=== PATIENT | female | born 1980 | race Caucasian/White ===

== ENCOUNTER 2022-09-19 15:52 | Observation (INO) ==
[2022-09-19] MEDS ORDERED: 0.9 % SODIUM CHLORIDE 1,000 ML IV ONE ×2 (16:25→17:41)
[2022-09-19] MEDS ORDERED: diphenhydrAMINE 50 MG/ML VIAL IV ONE (16:25)
[2022-09-19] MEDS ORDERED: PROCHLORPERAZINE 10 MG/2 ML VIAL IV ONE (16:25)
[2022-09-19] MEDS ORDERED: KETOROLAC 30 MG/ML VIAL IV ONE (16:25)
--- NOTE | 2022-09-19 16:34 | Emergency Department Note ---
HPI <Gail Alfredo PA-C - Last Filed: 09/19/22 20:11> General Chief complaint: Headache Stated complaint: headache for 4 days Time Seen by Provider: 09/19/22 16:07 Source: patient Mode of arrival: ambulatory Limitations: no limitations History of Present Illness HPI Narrative: Narrative: This is a 42-year-old female who presents to the emergency department complaining of headache. The headache begins at the occiput and spreads over her entire head. She has had similar headaches in the past both in intensity and in character. She states she has never had a headache last this long. Patient was in the emergency room for a fentanyl overdose 5 days ago. The next 2 days she had intermittent headache, nausea, and vomiting. Since yesterday she has had worsening headache. The headache came on gradually. She complains of phonophobia and photophobia. She denies fever, vision changes, diplopia, focal weakness, or rash. She continues to feel nauseated, but has not vomited. She h as had occasional cough, but states that she coughs often. She denies abdominal pain. She has no urinary symptoms. Related Data Previous Rx's Medication Instructions Recorded naloxone 4 mg/actuation nasal 4 mg intranasal Q2M PRN opioid 09/15/22 spray (Narcan) overdose #2 ea Allergies Allergy/AdvReac Type Severity Reaction Status Date / Time No Known Drug Allergies Allergy Verified 08/23/22 21:04 Review of Systems <Gail Alfredo PA-C - Last Filed: 09/19/22 20:11> ROS ROS Narrative: Narrative: All systems ED: reviewed and negative except as stated. PFSH <Gail Alfredo PA-C - Last Filed: 09/19/22 20:11> Narrative Patient History Narrative: Narrative: Medical/Surgical/Family History All Active Problems (Updated 09/20/22 @ 09:11 by Hermann Arellano MD) Strep sore throat (Acute) Drug overdose (Acute) Headache (Acute) Tachycardia (Acute) Sepsis (Acute) Urinary tract infection (Acute) Social History Smoking Status: Current every day smoker Exam <Gail Alfredo PA-C - Last Filed: 09/19/22 20:11> Narrative Narrative: Narrative: General Limitations: no limitations General appearance: Present alert; Absent in no apparent distress Head Head: Present atraumatic and normocephalic Eye Eye: Present normal appearance, PERRL and EOMI ENT ENT: Present normal oropharynx and mucous membranes moist Neck Neck: Present normal inspection and full ROM; Absent tenderness Respiratory Respiratory: Present normal lung sounds bilaterally Cardiovascular Cardiovascular: Present regular rate and normal heart sounds Adbominal Abdominal: Present soft; Absent tenderness Neurological Neurological: Present alert and oriented X3 Expanded Neurological Patient oriented to: Present person, place and time Speech: Present fluid speech CRANIAL NERVES: EOM function (II, III, IV, ): Normal, facial sensation (V): Normal, facial palsy (VII): Normal, spinal accessory function (XI): Normal and tongue deviation (XII): Normal Motor strength - LUE: 5/5 Motor strength - RUE: 5/5 Motor strength - LLE: 5/5 Motor strength - RLE: 5/5 Psychiatric Psychiatric: Present normal affect Skin Skin: Present warm (WNL); Absent rash Course <Gail Alfredo PA-C - Last Filed: 09/19/22 20:11> Course Course Narrative: Patient's headache is similar to previous headaches. There are no red flags in her history or exam. She was treated with IV fluids, IV Toradol, IV Compazine, and IV Benadryl for headache. Her headache did improve with this. She remained tachycardic and another liter of IV normal saline was ordered. Also CBC and CMP were ordered at this time. Sepsis considered when CBC results were reviewed at 6:42 PM. At this time lactic acid, blood cultures, chest x-ray, urinalysis were ordered. Patient also swallowed while I was in the room and stated that it hurt her throat to swallow. Because of this rapid strep was ordered. Rapid COVID and influenza testing was also ordered. Labs have been reviewed. Chest x-ray is negative. Urinalysis is still pending. Patient was discussed with Dr. Arellano who will resume her care. Please refer to his dictation for disposition regarding this patient. Vital Signs Vital signs: Vital Signs Temperature 98.8 F 09/19/22 15:56 Pulse Rate 112 H 09/19/22 15:56 Respiratory Rate 18 09/19/22 15:56 Blood Pressure 133/77 09/19/22 15:56 Pulse Oximetry (%) 99 09/19/22 15:56 Oxygen Delivery Method 09/19/22 15:56 Temperature 99.4 F H 09/20/22 07:33 Pulse Rate 87 09/20/22 08:00 Respiratory Rate 14 09/20/22 08:00 Blood Pressure 112/81 09/20/22 08:00 Pulse Oximetry (%) 100 09/20/22 08:00 Oxygen Delivery Method 09/20/22 08:00 <Hermann Arellano MD - Last Filed: 09/20/22 09:13> Vital Signs Vital signs: Vital Signs Temperature 98.8 F 09/19/22 15:56 Pulse Rate 112 H 09/19/22 15:56 Respiratory Rate 18 09/19/22 15:56 Blood Pressure 133/77 09/19/22 15:56 Pulse Oximetry (%) 99 09/19/22 15:56 Oxygen Delivery Method 09/19/22 15:56 Temperature 99.4 F H 09/20/22 07:33 Pulse Rate 87 09/20/22 08:00 Respiratory Rate 14 09/20/22 08:00 Blood Pressure 112/81 09/20/22 08:00 Pulse Oximetry (%) 100 09/20/22 08:00 Oxygen Delivery Method 09/20/22 08:00 MDM <Gail Alfredo PA-C - Last Filed: 09/19/22 20:11> MDM Narrative Medical decision making narrative: Narrative: Lab Data Result diagrams: 09/20/22 05:26 09/20/22 05:26 Labs: Lab Results 09/19/22 09/19/22 09/19/22 Range/Units 16:40 16:40 19:28 WBC 20.8 H (4.5-11.0) K/mcL RBC 3.69 (3.59-5.38) M/mcL Hgb 11.7 (11.2-15.7) g/dL Hct 34.1 (34.1-44.9) % MCV 92.4 (80.0-100.0) fL MCH 31.7 (26.0-34.0) pg MCHC 34.3 (31.0-36.0) g/dL RDW 11.6 (11.5-14.5) % Plt Count 313 (140-440) K/mcL MPV 10.0 (8.8-12.5) fL Immature Gran % (Auto) 0.5 (0.0-0.5) % Neut % (Auto) 85.0 H (38.0-78.0) % Lymph % (Auto) 5.1 L (15.5-49.0) % Ware % (Auto) 9.1 (1.0-12.0) % Eos % (Auto) 0.1 (0.0-7.0) % Baso % (Auto) 0.2 (0.0-2.0) % Lymph # (Auto) 1.06 L (1.50-4.80) K/mcL Ware # (Auto) 1.90 H (0.10-0.90) K/mcL Eos # (Auto) 0.03 (0.00-0.70) K/mcL Baso # (Auto) 0.04 (0.00-0.30) K/mcL Immature Gran # 0.10 H (0.00-0.05) K/mcl Absolute Neutrophils 17.71 H (1.80-8.00) K/mcL POC VBG pH 7.39 (7.32-7.42) POC VBG pCO2 at Temp 38.2 L (41-51) POC VBG pO2 61 H (25-40) POC VBG HCO3 22.9 L (24-28) POC VBG Total CO2 24.0 L (25-29) POC Venous O2 Sat 91.0 H (40-70) POC VBG Base Excess -2.0 (-2-2) VBG Lactic Acid 0.4 L (0.5-2) Sodium 133 (133-145) mmol/L Potassium 3.6 (3.3-5.1) mmol/L Chloride 97 (96-108) mmol/L Carbon Dioxide 26 (22-30) mmol/L Anion Gap 10.0 (8.0-16.0) BUN 14 (6-20) mg/dL Creatinine 0.8 (0.6-1.1) mg/dL GFR Calculation 92 Glucose 121 H (70-105) mg/dL Calcium 9.4 (8.6-10.4) mg/dL Urine Color Urine Appearance (Clear) Urine pH (5.0-9.0) Ur Specific Collins (1.000-1.035) Urine Protein (Negative) mg/dL Urine Glucose (UA) (Negative) mg/dL Urine Ketones (Negative) mg/dL Urine Occult Blood (Negative) nimo/mcL Urine Nitrate (Negative) Urine Bilirubin (Negative) mg/dL Urine Urobilinogen mg/dL Ur Leukocyte Esterase (Negative) /uL Urine RBC (0-3) /hpf Urine WBC (0-4) /hpf Ur Squamous Epith Cells (0-4) /hpf Urine Bacteria (0) /hpf Urine Mucus (None) /hpf Ur Culture Indicated? CSF Source CSF Appearance CSF Color CSF RBC (0-1) /cumm CSF Total Nucleated Auto (0-5) /cumm CSF Neutrophils CSF Lymphocytes CSF Reactive Lymphs CSF Monocytes CSF Eosinophils % CSF Basophils CSF Plasma Cells CSF Glucose (40-70) mg/dL CSF Total Protein (15.0-45.0) mg/dL Urine Opiates Screen Ur Opiates Confirm Ur Oxycodone Screen U Oxycod/Oxymor Confirm Urine Methadone Screen Ur Methadone Confirm Ur Barbiturates Screen Ur Barbiturate Confirm Ur Phencyclidine Scrn Urine PCP Confirm Ur Amphetamines Screen U Benzodiazepines Scrn Ur Benzodiazepine, Qnt Urine Cocaine Screen Urine Cocaine Confirm U Marijuana (THC) Screen 09/19/22 09/19/22 09/19/22 Range/Units 19:50 19:50 23:25 WBC (4.5-11.0) K/mcL RBC (3.59-5.38) M/mcL Hgb (11.2-15.7) g/dL Hct (34.1-44.9) % MCV (80.0-100.0) fL MCH (26.0-34.0) pg MCHC (31.0-36.0) g/dL RDW (11.5-14.5) % Plt Count (140-440) K/mcL MPV (8.8-12.5) fL Immature Gran % (Auto) (0.0-0.5) % Neut % (Auto) (38.0-78.0) % Lymph % (Auto) (15.5-49.0) % Ware % (Auto) (1.0-12.0) % Eos % (Auto) (0.0-7.0) % Baso % (Auto) (0.0-2.0) % Lymph # (Auto) (1.50-4.80) K/mcL Ware # (Auto) (0.10-0.90) K/mcL Eos # (Auto) (0.00-0.70) K/mcL Baso # (Auto) (0.00-0.30) K/mcL Immature Gran # (0.00-0.05) K/mcl Absolute Neutrophils (1.80-8.00) K/mcL POC VBG pH (7.32-7.42) POC VBG pCO2 at Temp (41-51) POC VBG pO2 (25-40) POC VBG HCO3 (24-28) POC VBG Total CO2 (25-29) POC Venous O2 Sat (40-70) POC VBG Base Excess (-2-2) VBG Lactic Acid (0.5-2) Sodium (133-145) mmol/L Potassium (3.3-5.1) mmol/L Chloride (96-108) mmol/L Carbon Dioxide (22-30) mmol/L Anion Gap (8.0-16.0) BUN (6-20) mg/dL Creatinine (0.6-1.1) mg/dL GFR Calculation Glucose (70-105) mg/dL Calcium (8.6-10.4) mg/dL Urine Color Lt. yellow Urine Appearance Clear (Clear) Urine pH 6.5 (5.0-9.0) Ur Specific Collins 1.010 (1.000-1.035) Urine Protein Negative (Negative) mg/dL Urine Glucose (UA) Negative (Negative) mg/dL Urine Ketones 15 A (Negative) mg/dL Urine Occult Blood Small A (Negative) nimo/mcL Urine Nitrate Positive A (Negative) Urine Bilirubin Negative (Negative) mg/dL Urine Urobilinogen Normal mg/dL Ur Leukocyte Esterase Trace A (Negative) /uL Urine RBC 2 (0-3) /hpf Urine WBC 15 H (0-4) /hpf Ur Squamous Epith Cells < 1 (0-4) /hpf Urine Bacteria Few A (0) /hpf Urine Mucus Few A (None) /hpf Ur Culture Indicated? yes CSF Source Tube 4 CSF Appearance Clear CSF Color Colorless CSF RBC 0 (0-1) /cumm CSF Total Nucleated Auto 0 (0-5) /cumm CSF Neutrophils TNP CSF Lymphocytes TNP CSF Reactive Lymphs TNP CSF Monocytes TNP CSF Eosinophils % TNP CSF Basophils TNP CSF Plasma Cells TNP CSF Glucose 64 (40-70) mg/dL CSF Total Protein 17.0 (15.0-45.0) mg/dL Urine Opiates Screen None detected Ur Opiates Confirm TNP Ur Oxycodone Screen None detected U Oxycod/Oxymor Confirm TNP Urine Methadone Screen None detected Ur Methadone Confirm TNP Ur Barbiturates Screen None detected Ur Barbiturate Confirm TNP Ur Phencyclidine Scrn None detected Urine PCP Confirm TNP Ur Amphetamines Screen Suspect positive A U Benzodiazepines Scrn None detected Ur Benzodiazepine, Qnt TNP Urine Cocaine Screen None detected Urine Cocaine Confirm TNP U Marijuana (THC) Screen Suspect positive A ED POC Tests ED POC Tests: CARLOS - Influenza A Negative CARLOS - Influenza B Negative CARLOS - SARS Antigen Negative CARLOS - Strep A+ Negative <Hermann Arellano MD - Last Filed: 09/20/22 09:13> MDM Narrative Medical decision making narrative: Narrative: I (Chuck Arellano MD) received sign-out from my colleague and took over care of the patient at 1999. Patient had a white count of 20,000 and tachycardia but no fever and no source of infection. Patient had a normal lactic acid level. Bloo d cultures were drawn but no antibiotics started. I suspected that tachycardia could be due to methamphetamine use although the patient denied any use. A urine drug screen was obtained and that did show methamphetamines in her system. Urinalysis came back showing 15 WBCs per high-powered field. That could be a source of infection. I reexamined the patient. While her headache was much better it was not completely gone. She was able to flex and extend her head. Her lungs were clear. I did not hear any cardiac murmur. She remained tachycardic. Her skin felt warm so I repeated the temperature and it was 100.6. At this time (2129), she has 3 SIRS criteria with tachycardia, fever 100.6, white count 20,000. And she has an infection source suspected UTI. Evaluated for severe sepsis she does not have elevated lactate. Her blood pressure is normal. She does not have altered mental status. Her platelet count is normal. Her creatinine is normal. She does not have acute respiratory failure. She does not meet criteria for severe sepsis, only sepsis. I am starting antibiotics with ceftriaxone 1 g IV. This would cover urinary tract sources of infection. I discussed the case with hospitalist Dr. Okeefe. He agreed with the patient being admitted to the hospital. Requested I add vancomycin antibiotic which I did. Requested lumbar puncture. I obtained a CT scan prior to the lumbar puncture which was unremarkable. Lumbar puncture: After prepping the back with Betadine and identifying the L4-L5 interspinous space I injected lidocaine 1% plain followed by insertion of a 22- gauge Ayo needle. I had no fluid back nor blood. I then anesthetized the back at the L3-L4 interspinous space and again inserted the 22-gauge Ayo needle and obtained clear CSF. Opening pressure was 23.5 cm and closing pressure was 18.5 cm. I collected 1-2 milliliters of CSF in tubes 1 2 and 3 and almost 3 mL of CSF in tube #4. Needle was withdrawn and the patient's back was bandaged and cleaned. Patient tolerated procedure well. Fluid was sent off for studies which revealed normal protein, normal glucose. Clear and colorless fluid, no white cells, no red cells. CSF meningitis/encephalitis PCR pending. Culture culture and gram stain were ordered. Patient was admitted to the hospitalist. Sepsis Sepsis Identified: Yes Time Zero: 2137. spiked fever 100.6 & urine came back with suspected infection Lab Data Labs: Lab Results 09/19/22 09/19/22 09/19/22 Range/Units 16:40 16:40 19:28 WBC 20.8 H (4.5-11.0) K/mcL RBC 3.69 (3.59-5.38) M/mcL Hgb 11.7 (11.2-15.7) g/dL Hct 34.1 (34.1-44.9) % MCV 92.4 (80.0-100.0) fL MCH 31.7 (26.0-34.0) pg MCHC 34.3 (31.0-36.0) g/dL RDW 11.6 (11.5-14.5) % Plt Count 313 (140-440) K/mcL MPV 10.0 (8.8-12.5) fL Immature Gran % (Auto) 0.5 (0.0-0.5) % Neut % (Auto) 85.0 H (38.0-78.0) % Lymph % (Auto) 5.1 L (15.5-49.0) % Ware % (Auto) 9.1 (1.0-12.0) % Eos % (Auto) 0.1 (0.0-7.0) % Baso % (Auto) 0.2 (0.0-2.0) % Lymph # (Auto) 1.06 L (1.50-4.80) K/mcL Ware # (Auto) 1.90 H (0.10-0.90) K/mcL Eos # (Auto) 0.03 (0.00-0.70) K/mcL Baso # (Auto) 0.04 (0.00-0.30) K/mcL Immature Gran # 0.10 H (0.00-0.05) K/mcl Absolute Neutrophils 17.71 H (1.80-8.00) K/mcL POC VBG pH 7.39 (7.32-7.42) POC VBG pCO2 at Temp 38.2 L (41-51) POC VBG pO2 61 H (25-40) POC VBG HCO3 22.9 L (24-28) POC VBG Total CO2 24.0 L (25-29) POC Venous O2 Sat 91.0 H (40-70) POC VBG Base Excess -2.0 (-2-2) VBG Lactic Acid 0.4 L (0.5-2) Sodium 133 (133-145) mmol/L Potassium 3.6 (3.3-5.1) mmol/L Chloride 97 (96-108) mmol/L Carbon Dioxide 26 (22-30) mmol/L Anion Gap 10.0 (8.0-16.0) BUN 14 (6-20) mg/dL Creatinine 0.8 (0.6-1.1) mg/dL GFR Calculation 92 Glucose 121 H (70-105) mg/dL Calcium 9.4 (8.6-10.4) mg/dL Urine Color Urine Appearance (Clear) Urine pH (5.0-9.0) Ur Specific Collins (1.000-1.035) Urine Protein (Negative) mg/dL Urine Glucose (UA) (Negative) mg/dL Urine Ketones (Negative) mg/dL Urine Occult Blood (Negative) nimo/mcL Urine Nitrate (Negative) Urine Bilirubin (Negative) mg/dL Urine Urobilinogen mg/dL Ur Leukocyte Esterase (Negative) /uL Urine RBC (0-3) /hpf Urine WBC (0-4) /hpf Ur Squamous Epith Cells (0-4) /hpf Urine Bacteria (0) /hpf Urine Mucus (None) /hpf Ur Culture Indicated? CSF Source CSF Appearance CSF Color CSF RBC (0-1) /cumm CSF Total Nucleated Auto (0-5) /cumm CSF Neutrophils CSF Lymphocytes CSF Reactive Lymphs CSF Monocytes CSF Eosinophils % CSF Basophils CSF Plasma Cells CSF Glucose (40-70) mg/dL CSF Total Protein (15.0-45.0) mg/dL Urine Opiates Screen Ur Opiates Confirm Ur Oxycodone Screen U Oxycod/Oxymor Confirm Urine Methadone Screen Ur Methadone Confirm Ur Barbiturates Screen Ur Barbiturate Confirm Ur Phencyclidine Scrn Urine PCP Confirm Ur Amphetamines Screen U Benzodiazepines Scrn Ur Benzodiazepine, Qnt Urine Cocaine Screen Urine Cocaine Confirm U Marijuana (THC) Screen 09/19/22 09/19/22 09/19/22 Range/Units 19:50 19:50 23:25 WBC (4.5-11.0) K/mcL RBC (3.59-5.38) M/mcL Hgb (11.2-15.7) g/dL Hct (34.1-44.9) % MCV (80.0-100.0) fL MCH (26.0-34.0) pg MCHC (31.0-36.0) g/dL RDW (11.5-14.5) % Plt Count (140-440) K/mcL MPV (8.8-12.5) fL Immature Gran % (Auto) (0.0-0.5) % Neut % (Auto) (38.0-78.0) % Lymph % (Auto) (15.5-49.0) % Ware % (Auto) (1.0-12.0) % Eos % (Auto) (0.0-7.0) % Baso % (Auto) (0.0-2.0) % Lymph # (Auto) (1.50-4.80) K/mcL Ware # (Auto) (0.10-0.90) K/mcL Eos # (Auto) (0.00-0.70) K/mcL Baso # (Auto) (0.00-0.30) K/mcL Immature Gran # (0.00-0.05) K/mcl Absolute Neutrophils (1.80-8.00) K/mcL POC VBG pH (7.32-7.42) POC VBG pCO2 at Temp (41-51) POC VBG pO2 (25-40) POC VBG HCO3 (24-28) POC VBG Total CO2 (25-29) POC Venous O2 Sat (40-70) POC VBG Base Excess (-2-2) VBG Lactic Acid (0.5-2) Sodium (133-145) mmol/L Potassium (3.3-5.1) mmol/L Chloride (96-108) mmol/L Carbon Dioxide (22-30) mmol/L Anion Gap (8.0-16.0) BUN (6-20) mg/dL Creatinine (0.6-1.1) mg/dL GFR Calculation Glucose (70-105) mg/dL Calcium (8.6-10.4) mg/dL Urine Color Lt. yellow Urine Appearance Clear (Clear) Urine pH 6.5 (5.0-9.0) Ur Specific Collins 1.010 (1.000-1.035) Urine Protein Negative (Negative) mg/dL Urine Glucose (UA) Negative (Negative) mg/dL Urine Ketones 15 A (Negative) mg/dL Urine Occult Blood Small A (Negative) nimo/mcL Urine Nitrate Positive A (Negative) Urine Bilirubin Negative (Negative) mg/dL Urine Urobilinogen Normal mg/dL Ur Leukocyte Esterase Trace A (Negative) /uL Urine RBC 2 (0-3) /hpf Urine WBC 15 H (0-4) /hpf Ur Squamous Epith Cells < 1 (0-4) /hpf Urine Bacteria Few A (0) /hpf Urine Mucus Few A (None) /hpf Ur Culture Indicated? yes CSF Source Tube 4 CSF Appearance Clear CSF Color Colorless CSF RBC 0 (0-1) /cumm CSF Total Nucleated Auto 0 (0-5) /cumm CSF Neutrophils TNP CSF Lymphocytes TNP CSF Reactive Lymphs TNP CSF Monocytes TNP CSF Eosinophils % TNP CSF Basophils TNP CSF Plasma Cells TNP CSF Glucose 64 (40-70) mg/dL CSF Total Protein 17.0 (15.0-45.0) mg/dL Urine Opiates Screen None detected Ur Opiates Confirm TNP Ur Oxycodone Screen None detected U Oxycod/Oxymor Confirm TNP Urine Methadone Screen None detected Ur Methadone Confirm TNP Ur Barbiturates Screen None detected Ur Barbiturate Confirm TNP Ur Phencyclidine Scrn None detected Urine PCP Confirm TNP Ur Amphetamines Screen Suspect positive A U Benzodiazepines Scrn None detected Ur Benzodiazepine, Qnt TNP Urine Cocaine Screen None detected Urine Cocaine Confirm TNP U Marijuana (THC) Screen Suspect positive A ED POC Tests ED POC Tests: CARLOS - Influenza A Negative CARLOS - Influenza B Negative CARLOS - SARS Antigen Negative CARLOS - Strep A+ Negative <Hermann Arellano MD - Last Filed: 09/20/22 09:13> Lumbar Puncture Consent Obtained: written consent Time Out Performed: No Patient Position: left lateral decubitus Skin Prep: Povidone-Iodine 1% Local Anesthetic: lidocaine 1% Amount of anesthesia used (mL): 4 Spinal Needle Gauge: 22G (Ayo needle) Interspace Used: L3-L4 Opening Pressure (cmH20): 23.5 Fluid Initially Obtained: clear Additional Comments: Closing pressure 18.5 cm. Initial attempt at the L4-L5 interspinous space was unsuccessful. Second attempt at the L3-L4 interspinous space was successful. Complications: none Discharge Plan Patient/Caregiver Discharge Instructions Pt seen by CHILD DEVELOPMENT SPECIALIST/PA only: No Clinical Impression: Tachycardia Headache Qualifiers: Headache type: unspecified Headache chronicity pattern: acute headache Intractability: not intractable Qualified Code(s): R51.9 - Headache, unspecified Sepsis Qualifiers: Sepsis type: sepsis due to unspecified organism Sepsis acute organ dysfunction status: without acute organ dysfunction Qualified Code(s): A41.9 - Sepsis, unspecified organism Urinary tract infection Qualifiers: Urinary tract infection type: acute cystitis Hematuria presence: without hematuria Qualified Code(s): N30.00 - Acute cystitis without hematuria Patient Disposition: Xfer As Inpt ([facility] Condition: Serious Discharge Date/Time: 09/20/22 00:11
[2022-09-19 18:30] LABS: Basophils # (Auto) 0.04 K/mcL (0.00-0.30); Basophils % (Auto) 0.2 % (0.0-2.0); Eosinophils # (Auto) 0.03 K/mcL (0.00-0.70); Eosinophils % (Auto) 0.1 % (0.0-7.0); Hematocrit 34.1 % (34.1-44.9); Hemoglobin 11.7 g/dL (11.2-15.7); Lymphocytes # (Auto) 1.06 K/mcL (1.50-4.80); Lymphocytes % (Auto) 5.1 % (15.5-49.0); Mean Cell Volume 92.4 fL (80.0-100.0); Mean Corpuscular HGB Conc 34.3 g/dL (31.0-36.0); Monocytes % (Auto) 9.1 % (1.0-12.0); Platelet Count 313 K/mcL (140-440); RBC 3.69 M/mcL (3.59-5.38); Red Cell Distribution Width 11.6 % (11.5-14.5); WBC 20.8 K/mcL (4.5-11.0)
[2022-09-19 18:39] LABS: Blood Urea Nitrogen 14 mg/dL (6-20); Calcium 9.4 mg/dL (8.6-10.4); Carbon Dioxide 26 mmol/L (22-30); Chloride 97 mmol/L (96-108); Glomerular Filtration Rate 92; Glucose 121 mg/dL (70-105)
--- NOTE | 2022-09-19 19:04 | XRay Report ---
HISTORY: Tachycardia and headaches for four days FINDINGS: The lungs are clear. Heart size and pulmonary vasculature are normal. The mediastinum, yusuf and pleura are normal. There has been no significant change since 09/15/22. IMPRESSION: Normal chest. Interpreted and Authenticated by: Shahram Lovell 09/19/22
[2022-09-19 20:29] LABS: Appearance,Urine CLEAR (Clear); Bacteria,Urine FEW /hpf (0); Bilirubin,Urine NEGATIVE (Negative); Color,Urine LT. YELLOW; Culture Indicated,Urine yes; Glucose,Urine (UA) NEGATIVE (Negative); Ketones,Urine 15 mg/dL (Negative); Leukocyte Esterase,Urine TRACE /uL (Negative); Mucus,Urine FEW /hpf; Nitrate,Urine Positive (Negative); PH,Urine 6.5 (5.0-9.0); Protein,Urine NEGATIVE (Negative); Urine Blood SMALL ery/mcL (Negative); Urine RBC 2 /hpf (0-3); Urine Squamous Epithelial Cell < 1 /hpf (0-4); Urine WBC 15 /hpf (0-4); Urobilinogen,Urine Normal
[2022-09-19 20:54] LABS: Amphetamine Screen,Urine Suspect positive; Barbiturate Screen,Urine None detected; Benzodiazepines Screen,Urine None detected; Cannabinoid Screen,Urine Suspect Positive; Cocaine Screen,Urine None detected; Opiate Screen,Urine None detected; Oxycodone, Urine Screen None detected; Phencyclidine Screen,Urine None detected
[2022-09-19] MEDS ORDERED: cefTRIAXone 1 GM VIAL IV ONE (21:37)
[2022-09-19] MEDS ORDERED: VANCOMYCIN 1,000 MG in 0.9 % SODIUM CHLORIDE 250 ML IV ONE (21:52)
--- NOTE | 2022-09-19 22:08 | Internal Med History&Physical ---
HPI History of Present Illness Patient information: Note initiated : 09/19/22 at 10:02 pm Service Date, if different from initiated Date: [] Patient: Robyn Blanco 42 y/o F admitted on for headache for 4 days. Chief Complaint: [] History of present illness: Ms. Blanco is a 42 year old F Female who presented to the emergency department complaining of a headache. She says that she has a history of headaches and this is similar to her prior headaches. In the emergency department, the patient had a leukocytosis and there was concern the patient was septic from an unknown source. Work-up in the ED included urinalysis which was mildly suggestive of UTI. Patient recently had an unintentional fentanyl overdose when she snorted laced cocaine. Patient also has a history of methamphetamine use disorder. In the ED, the patient had a white blood cell count of 19,600. Her prior white blood cell count at [facility] have also been elevated. The patient denies IV substance use, says that she mostly snorts substances. She denies during dysuria or increased frequency Review of systems Constitutional: no fever, fatigue, or weight loss Eyes: no vision changes or pain Cardiovascular: no chest pain, no palpitations Respiratory: no cough or dyspnea Gastrointestinal: no abdominal pain, no nausea, vomiting, or diarrhea Genitourinary: no dysuria or difficulty voiding Musculoskeletal: no arthralgia or myalgia Integumentary: no skin lesion or wound Neurological: Positive for headache, no focal weakness or numbness Psychiatric: no anxiety or depression Physical exam Head: Atraumatic, normal inspection. Eyes: normal appearance, no scleral icterus. Neck: full ROM Respiratory: no respiratory distress. Cardiovascular: normal rate and rhythm, S1, S2. GI/Abdominal: soft, nontender, no guarding. Extremities: full range of motion, nontender. Neurological: CN II-XII intact, intact motor, intact sensation. Psychiatric: normal mood. Skin: warm, normal color PFSH PFSH All Active Problems (Updated 09/20/22 @ 09:11 by Hermann Arellano MD) Strep sore throat (Acute) Drug overdose (Acute) Headache (Acute) Tachycardia (Acute) Sepsis (Acute) Urinary tract infection (Acute) Social History smoking status: Current every day smoker MEDS/ALLERGIES Home Medications and Allergies Home Medications Medication Instructions Recorded Confirmed Type naloxone 4 mg/actuation nasal 4 mg intranasal Q2M PRN opioid 09/15/22 09/19/22 Rx spray (Narcan) overdose #2 ea levofloxacin 750 mg tablet 750 mg PO QDAY 5 days #5 tabs 09/20/22 Rx Allergies Allergy/AdvReac Type Severity Reaction Status Date / Time No Known Drug Allergies Allergy Verified 08/23/22 21:04 EXAM Constitutional Vitals: Temp Pulse Resp BP Pulse Ox O2 Del Method 100.6 F H 103 H 18 121/75 100 09/19/22 21:35 09/19/22 20:55 09/19/22 15:56 09/19/22 21:43 09/19/22 21:43 09/19/22 15:56 DATA Data Completed and Pending Labs: Labs from last 24 hours 09/19/22 09/19/22 09/19/22 19:50 19:50 19:28 WBC RBC Hgb Hct MCV MCH MCHC RDW Plt Count MPV Immature Gran % (Auto) Neut % (Auto) Lymph % (Auto) [place] % (Auto) Eos % (Auto) Baso % (Auto) Lymph # (Auto) [place] # (Auto) Eos # (Auto) Baso # (Auto) Immature Gran # Absolute Neutrophils POC VBG pH 7.39 POC VBG pCO2 at Temp 38.2 L POC VBG pO2 61 H POC VBG HCO3 22.9 L POC VBG Total CO2 24.0 L POC Venous O2 Sat 91.0 H POC VBG Base Excess -2.0 VBG Lactic Acid 0.4 L Sodium Potassium Chloride Carbon Dioxide Anion Gap BUN Creatinine GFR Calculation Glucose Calcium Urine Color Lt. yellow Urine Appearance Clear Urine pH 6.5 Ur Specific [place] 1.010 Urine Protein Negative Urine Glucose (UA) Negative Urine Ketones 15 A Urine Occult Blood Small A Urine Nitrate Positive A Urine Bilirubin Negative Urine Urobilinogen Normal Ur Leukocyte Esterase Trace A Urine RBC 2 Urine WBC 15 H Ur Squamous Epith Cells < 1 Urine Bacteria Few A Urine Mucus Few A Ur Culture Indicated? yes Urine Opiates Screen None detected Ur Opiates Confirm TNP Ur Oxycodone Screen None detected U Oxycod/Oxymor Confirm TNP Urine Methadone Screen None detected Ur Methadone Confirm TNP Ur Barbiturates Screen None detected Ur Barbiturate Confirm TNP Ur Phencyclidine Scrn None detected Urine PCP Confirm TNP Ur Amphetamines Screen Suspect positive A U Amphetamines Confirm Pending U Benzodiazepines Scrn None detected Ur Benzodiazepine, Qnt TNP Urine Cocaine Screen None detected Urine Cocaine Confirm TNP U Cannabinoids Confirm Pending U Marijuana (THC) Screen Suspect positive A 09/19/22 09/19/22 16:40 16:40 WBC 20.8 H RBC 3.69 Hgb 11.7 Hct 34.1 MCV 92.4 MCH 31.7 MCHC 34.3 RDW 11.6 Plt Count 313 MPV 10.0 Immature Gran % (Auto) 0.5 Neut % (Auto) 85.0 H Lymph % (Auto) 5.1 L [place] % (Auto) 9.1 Eos % (Auto) 0.1 Baso % (Auto) 0.2 Lymph # (Auto) 1.06 L [place] # (Auto) 1.90 H Eos # (Auto) 0.03 Baso # (Auto) 0.04 Immature Gran # 0.10 H Absolute Neutrophils 17.71 H POC VBG pH POC VBG pCO2 at Temp POC VBG pO2 POC VBG HCO3 POC VBG Total CO2 POC Venous O2 Sat POC VBG Base Excess VBG Lactic Acid Sodium 133 Potassium 3.6 Chloride 97 Carbon Dioxide 26 Anion Gap 10.0 BUN 14 Creatinine 0.8 GFR Calculation 92 Glucose 121 H Calcium 9.4 Urine Color Urine Appearance Urine pH Ur Specific [place] Urine Protein Urine Glucose (UA) Urine Ketones Urine Occult Blood Urine Nitrate Urine Bilirubin Urine Urobilinogen Ur Leukocyte Esterase Urine RBC Urine WBC Ur Squamous Epith Cells Urine Bacteria Urine Mucus Ur Culture Indicated? Urine Opiates Screen Ur Opiates Confirm Ur Oxycodone Screen U Oxycod/Oxymor Confirm Urine Methadone Screen Ur Methadone Confirm Ur Barbiturates Screen Ur Barbiturate Confirm Ur Phencyclidine Scrn Urine PCP Confirm Ur Amphetamines Screen U Amphetamines Confirm U Benzodiazepines Scrn Ur Benzodiazepine, Qnt Urine Cocaine Screen Urine Cocaine Confirm U Cannabinoids Confirm U Marijuana (THC) Screen A/P Narrative A/P Narrative: Assessment: 42 year old female with a history of headaches, substance use disorder with methamphetamine and opioids, recent fentanyl overdose, admitted for sepsis of unknown source. The patient is hemodynamically stable, lactic acid was normal. UA was mildly positive for UTI. Chest xray was normal. #Sepsis of unknown source #Possible UTI #Headache #Opioid use disorder with recent fentanyl overdose #Methamphetamine use disorder Plan -Vancomycin and Ceftriaxone for now. -IV fluid, monitor hemodynamic status. -CT head followed by lumbar puncture with CSF infectious workup. -Follow blood and urine cultures. -Check LFTs. -Follow WBC. -Nonopioid analgesics. -As needed Suboxone for opioid withdrawal. -Regular diet. -DVT prophylaxis: Lovenox Time Spent With Patient Time: Total time spent is greater than 50% in coordination of care (as documented) at patient's floor/unit and/or counseling patient:
[2022-09-20 00:03] LABS: Glucose,CSF 64 mg/dL (40-70)
[2022-09-20 00:12] LABS: Appearance,CSF Clear; Nucleated Cells,CSF 0 /cumm (0-5); Red Blood Cell,CSF 0 /cumm (0-1)
[2022-09-20] MEDS ORDERED: ACETAMINOPHEN 325 MG TABLET PO PRN (00:23)
[2022-09-20] MEDS ORDERED: KETOROLAC 30 MG/ML VIAL IV PRN (00:23)
[2022-09-20] MEDS ORDERED: LACTULOSE 20 GM/30 ML ORAL.SOL PO PRN (00:23)
[2022-09-20] MEDS ORDERED: ONDANSETRON 4 MG/2 ML VIAL IV PRN (00:23)
[2022-09-20] MEDS ORDERED: VANCOMYCIN PER PHARMACY IV ONE (00:23)
[2022-09-20] MEDS ORDERED: BUPRENORPHINE/NALOXONE 4MG/1MG ORAL FILM SL PRN (00:23)
[2022-09-20] MEDS ORDERED: SENNOSIDES 1 TABLET PO PRN (00:23)
[2022-09-20] MEDS ORDERED: cefTRIAXone 1 GM VIAL IV ONE (00:23)
[2022-09-20] MEDS: 0.9 % SODIUM CHLORIDE 1,000 ML IV SCH ×2 (00:45→08:37)
[2022-09-20] MEDS: 0.9 % SODIUM CHLORIDE 10 ML SYRINGE IV SCH ×3 (01:01→15:14)
[2022-09-20] MEDS ORDERED: cefTRIAXone 1 GM VIAL ONE (01:03)
[2022-09-20] MEDS ORDERED: VANCOMYCIN PER PHARMACY IV SCH (06:00)
[2022-09-20 06:55] LABS: Hematocrit 32.9 % (34.1-44.9); Hemoglobin 11.1 g/dL (11.2-15.7); Mean Cell Volume 92.9 fL (80.0-100.0); Mean Corpuscular HGB Conc 33.7 g/dL (31.0-36.0); Platelet Count 296 K/mcL (140-440); RBC 3.54 M/mcL (3.59-5.38); Red Cell Distribution Width 11.5 % (11.5-14.5); WBC 19.6 K/mcL (4.5-11.0)
[2022-09-20 07:38] LABS: ALT/SGPT 13 U/L (<40); AST/SGOT 17 U/L (<32); Albumin/Globulin Ratio 1.1 (1.0-2.3); Alkaline Phosphatase 105 U/L (39-117); Bilirubin,Direct < 0.2 mg/dL (0-0.3); Bilirubin,Total 0.2 mg/dL (0.1-1.0); Blood Urea Nitrogen 9 mg/dL (6-20); Calcium 8.7 mg/dL (8.6-10.4); Carbon Dioxide 21 mmol/L (22-30); Chloride 105 mmol/L (96-108); Globulin 2.8 gm/dL (2.2-3.7); Glomerular Filtration Rate 92; Glucose 88 mg/dL (70-105); Lactate Dehydrogenase 226 U/L (135-225); Phosphorous 2.7 mg/dL (2.5-4.5); Triglycerides 68 mg/dL (<150); Uric Acid 3.7 mg/dL (2.5-8.0)
--- NOTE | 2022-09-20 08:01 | Cat Scan Report ---
History: Headache and sepsis, recent drug overdose on 09/15/22 TECHNIQUE: The brain was imaged without contrast in axial plane at 2.5 mm intervals. Sagittal and coronal reformats were created. The radiation exposure was limited using dose reduction technology. FINDINGS: The brain is normally developed. There is no hemorrhage, infarct, edema or inflammatory change. The ventricles and cisterns are normal. There is no abnormal extra-axial fluid collection. Bone windows show no skull lesion. Patient has mild bilateral ethmoid sinusitis. IMPRESSION: Normal unenhanced brain Mild ethmoid sinusitis Interpreted and Authenticated by: Shahram Lovell 09/20/22
[2022-09-20 08:56] LABS: Band Neutrophils % 5 % (0-10); Eosinophils % (Manual) 2 % (0-7); Lymphocytes % 18 % (15-49); Monocytes % (Manual) 2 % (1-12); Platelet Estimate NORMAL (Normal); RBC Morphology NORMAL (Normal); Segmented Neutrophils % 73 % (38-78)
[2022-09-20] MEDS ORDERED: VANCOMYCIN 1,000 MG in 0.9 % SODIUM CHLORIDE 250 ML IV SCH (09:00)
[2022-09-20] MEDS ORDERED: DOCUSATE SODIUM 100 MG CAPSULE PO SCH (09:00)
[2022-09-20] MEDS ORDERED: ENOXAPARIN 40 MG/0.4 ML SYRINGE SQ SCH (09:00)
[2022-09-20] MEDS ORDERED: cefTRIAXone 2 GM in DEXTROSE 5% IN WATER 50 ML IV SCH (14:00)
[2022-09-28 04:53] LABS: Cannabinoid Confirmation Positive
== END 2022-09-20 19:07 | disposition left against medical advice (07) ==
LOC: ED 15:52 → ICU 09-20 00:11 → INTOOBSV 09-20 00:11
PROVIDERS: ADMIT Internal Medicine; ATTEND Internal Medicine

== ENCOUNTER 2022-11-28 02:28 | Inpatient (IN) ==
[2022-11-28] MEDS ORDERED: IOPAMIDOL 100 ML BOTTLE IV ONE (02:29)
--- NOTE | 2022-11-28 02:33 | Emergency Department Note ---
Abdominal Pain HPI General Chief Complaint: Abdominal Pain Stated Complaint: left upper abd. pain Time Seen by Provider: 11/28/22 02:33 Source: patient Mode of arrival: ambulatory Limitations: no limitations History of Present Illness HPI Narrative: Narrative: 42-year-old female presents emergency department complaining of stomach pain that began tonight. She locates it to the left upper quadrant. She describes it as a cramping sensation. Rates it as a 9 on a 0-to-10 scale. Says no prior similar episode. States the pain is constant. Denies radiation to the back. Has associated vomiting. Has associated fever. Patient denies any other medical problems other than she is prediabetic. Related Data Previous Rx's Medication Instructions Recorded naloxone 4 mg/actuation nasal 4 mg intranasal Q2M PRN opioid 09/15/22 spray (Narcan) overdose #2 ea Allergies Allergy/AdvReac Type Severity Reaction Status Date / Time No Known Drug Allergies Allergy Verified 11/28/22 02:33 Review of Systems ROS ROS Narrative: Narrative: Constitutional: Reports fever Eyes: Denies eye discharge ENT ED: Denies throat pain or rhinorrhea Cardiovascular: Denies chest pain Respiratory: Denies shortness of breath Gastrointestinal: Reports abdominal pain, nausea and vomiting Genitourinary: Denies dysuria Musculoskeletal: Denies back pain Integumentary: Denies rash Neurological: Denies headache PFSH Narrative Patient History Narrative: Narrative: Medical/Surgical/Family History All Active Problems (Updated 11/28/22 @ 08:40 by Domenic Mesa MD) Drug abuse (Acute) Prediabetes (Acute) Pyelonephritis (Acute) Strep sore throat (Acute) Drug overdose (Acute) Headache (Acute) Tachycardia (Acute) Sepsis (Acute) Urinary tract infection (Acute) Abdominal pain, acute (Acute) Social History Smoking Status: Current every day smoker Exam Narrative Narrative: Narrative: General Limitations: no limitations General appearance: Present alert and in distress Head Head: Present atraumatic and normocephalic Eye Eye: Present normal appearance; Absent scleral icterus Neck Neck: Present normal inspection Respiratory Respiratory: Present normal lung sounds bilaterally; Absent respiratory distress Cardiovascular Cardiovascular: Present regular rate and tachycardia Adbominal Abdominal: Present soft; Absent tenderness (Epigastric area and left upper quadrant), guarding or rebound Extremities Extremities: Present normal inspection Back Back: Absent tenderness Neurological Neurological: Present alert and oriented X3 Psychiatric Psychiatric: Present normal affect and normal mood Skin Skin: Present warm (WNL) and dry Course Vital Signs Vital signs: Vital Signs Temperature 98.5 F 11/28/22 02:29 Pulse Rate 91 H 11/28/22 02:29 Respiratory Rate 18 11/28/22 02:29 Blood Pressure 129/84 11/28/22 02:29 Pulse Oximetry (%) 99 11/28/22 02:29 Oxygen Delivery Method 11/28/22 02:29 Temperature 98.5 F 11/28/22 02:29 Pulse Rate 85 11/28/22 08:30 Respiratory Rate 18 11/28/22 02:29 Blood Pressure 119/78 11/28/22 08:30 Pulse Oximetry (%) 98 11/28/22 08:30 Oxygen Delivery Method 11/28/22 02:29 MDM MDM Narrative Medical decision making narrative: Narrative: Middle-aged female with upper abdominal pain Differential diagnosis includes biliary duct disease or cholecystitis. Tested liver function tests and they were normal. Differential diagnosis includes pyelonephritis or urinary tract infection. Urine dip was positive for nitrites, positive for small leuks and small blood. Presumed infection and sent to the laboratory for further evaluation. Differential diagnosis includes pancreatitis. Lipase is normal at 31. Differential diagnosis includes gastritis, peptic ulcer disease, GERD. Patient was given Protonix 40 mg IV while undergoing work-up. Differential diagnosis includes intestinal obstruction or other intestinal etiology. Clinical exam not consistent with bowel obstruction White count elevated at 17,000 with 76 neutrophils which is normal and 13 lymphocytes which is slightly low. Hemoglobin was normal at 12.4. Electrolytes were normal. Glucose was elevated at 113. BUN and creatinine were normal. Liver function tests were normal. AST of 19 ALT of 11 bilirubin of 0.4 and direct bili of less than 0.02. Lipase was normal at 31. Urinalysis showed 83 white cells per high-powered field and positive nitrates consistent with urinary tract infection. Lactic acid pending. INR and PTT pending. Sepsis identified at 0420 when the urine dip was positive for nitrites. 2 SIRS criteria were heart rate greater than 90 (98) and white count greater than 12,000 (17,000). Blood cultures x2 were then ordered followed by administration of antibiotics (Zosyn and Vanco) normal saline was ordered at 30 mL/kg. Patient had previously received 1000 mL IV. 0510: Patient is resting comfortably after having received Dilaudid 0.5 mg IV and Zofran.Heart rate is remained tachycardic. at this time is 96. 0630: Discussed with Dr. Mesa the hospitalist. He has accepted the pt. for admission. 0645: Reexamination. Patient states her pain is a 2 on a 0-to-10 scale. States its left upper quadrant. States its been left upper quadrant the entire time. She allowed deep palpation in left and right lower quadrant. She had no rebound tenderness. She had no guarding. She had no referred pain. I considered acute appendicitis but I think this is unlikely. The patient does have elevated white count and fever and abdominal pain with sepsis. I will obtain a CT scan of the abdomen pelvis to look for any source for the infection. Sepsis Sepsis Identified: Yes Time Zero: 0420 with Urine dip positive Lab Data Result diagrams: 11/28/22 02:53 Labs: Lab Results 11/28/22 11/28/22 11/28/22 Range/Units 02:53 02:53 03:24 WBC 17.0 H (4.5-11.0) K/mcL RBC 3.97 (3.59-5.38) M/mcL Hgb 12.4 (11.2-15.7) g/dL Hct 35.7 (34.1-44.9) % POC Hct 34.0 L (36-48) MCV 89.9 (80.0-100.0) fL MCH 31.2 (26.0-34.0) pg MCHC 34.7 (31.0-36.0) g/dL RDW 12.0 (11.5-14.5) % Plt Count 328 (140-440) K/mcL MPV 10.4 (8.8-12.5) fL Immature Gran % (Auto) 0.4 (0.0-0.5) % Neut % (Auto) 75.7 (38.0-78.0) % Lymph % (Auto) 13.2 L (15.5-49.0) % [place] % (Auto) 9.7 (1.0-12.0) % Eos % (Auto) 0.6 (0.0-7.0) % Baso % (Auto) 0.4 (0.0-2.0) % Lymph # (Auto) 2.25 (1.50-4.80) K/mcL [place] # (Auto) 1.65 H (0.10-0.90) K/mcL Eos # (Auto) 0.10 (0.00-0.70) K/mcL Baso # (Auto) 0.06 (0.00-0.30) K/mcL Immature Gran # 0.06 H (0.00-0.05) K/mcl Absolute Neutrophils 12.90 H (1.80-8.00) K/mcL PT (11.9-14.5) sec INR (0.9-1.1) APTT (20.0-37.0) sec VBG Lactic Acid (0.5-2.0) mmol/L POC Sodium 136 (133-145) POC Potassium 3.7 (3.3-5.1) POC Chloride 101 (96-108) POC Total CO2 27.0 (22-30) POC BUN 15 (6-20) POC Creatinine 0.8 (0.6-1.2) POC Glucose 113 H (70-105) POC WB Ioniz Calcium 1.15 L (1.16-1.32) Total Bilirubin 0.4 (0.1-1.0) mg/dL Direct Bilirubin < 0.2 (0-0.3) mg/dL AST 19 (<32) U/L ALT 11 (<40) U/L Alkaline Phosphatase 103 (39-117) U/L Total Protein 6.9 (5.9-8.4) gm/dL Albumin 3.8 (3.2-5.2) gm/dL Globulin 3.1 (2.2-3.7) gm/dL Lipase (7-60) U/L Urine Color Urine Appearance (Clear) Urine pH (5.0-9.0) Ur Specific [place] (1.000-1.035) Urine Protein (Negative) mg/dL Urine Glucose (UA) (Negative) mg/dL Urine Ketones (Negative) mg/dL Urine Occult Blood (Negative) nimo/mcL Urine Nitrate (Negative) Urine Bilirubin (Negative) mg/dL Urine Urobilinogen mg/dL Ur Leukocyte Esterase (Negative) /uL Urine RBC (0-3) /hpf Urine WBC (0-4) /hpf Ur Squamous Epith Cells (0-4) /hpf Urine Bacteria (0) /hpf Urine Mucus (None) /hpf Ur Culture Indicated? 11/28/22 11/28/22 11/28/22 Range/Units 04:19 04:40 04:40 WBC (4.5-11.0) K/mcL RBC (3.59-5.38) M/mcL Hgb (11.2-15.7) g/dL Hct (34.1-44.9) % POC Hct (36-48) MCV (80.0-100.0) fL MCH (26.0-34.0) pg MCHC (31.0-36.0) g/dL RDW (11.5-14.5) % Plt Count (140-440) K/mcL MPV (8.8-12.5) fL Immature Gran % (Auto) (0.0-0.5) % Neut % (Auto) (38.0-78.0) % Lymph % (Auto) (15.5-49.0) % [place] % (Auto) (1.0-12.0) % Eos % (Auto) (0.0-7.0) % Baso % (Auto) (0.0-2.0) % Lymph # (Auto) (1.50-4.80) K/mcL [place] # (Auto) (0.10-0.90) K/mcL Eos # (Auto) (0.00-0.70) K/mcL Baso # (Auto) (0.00-0.30) K/mcL Immature Gran # (0.00-0.05) K/mcl Absolute Neutrophils (1.80-8.00) K/mcL PT 13.6 (11.9-14.5) sec INR 1.0 (0.9-1.1) APTT 35.1 (20.0-37.0) sec VBG Lactic Acid 0.4 L (0.5-2.0) mmol/L POC Sodium (133-145) POC Potassium (3.3-5.1) POC Chloride (96-108) POC Total CO2 (22-30) POC BUN (6-20) POC Creatinine (0.6-1.2) POC Glucose (70-105) POC WB Ioniz Calcium (1.16-1.32) Total Bilirubin (0.1-1.0) mg/dL Direct Bilirubin (0-0.3) mg/dL AST (<32) U/L ALT (<40) U/L Alkaline Phosphatase (39-117) U/L Total Protein (5.9-8.4) gm/dL Albumin (3.2-5.2) gm/dL Globulin (2.2-3.7) gm/dL Lipase 31 (7-60) U/L Urine Color Lt. yellow Urine Appearance Cloudy A (Clear) Urine pH 7.0 (5.0-9.0) Ur Specific [place] 1.015 (1.000-1.035) Urine Protein Negative (Negative) mg/dL Urine Glucose (UA) Negative (Negative) mg/dL Urine Ketones Negative (Negative) mg/dL Urine Occult Blood Small A (Negative) nimo/mcL Urine Nitrate Positive A (Negative) Urine Bilirubin Negative (Negative) mg/dL Urine Urobilinogen Normal mg/dL Ur Leukocyte Esterase Small A (Negative) /uL Urine RBC 9 H (0-3) /hpf Urine WBC 83 H (0-4) /hpf Ur Squamous Epith Cells < 1 (0-4) /hpf Urine Bacteria Few A (0) /hpf Urine Mucus Few A (None) /hpf Ur Culture Indicated? yes ED POC Tests ED POC Tests: HCG POC Results Negative Discharge Plan Patient/Caregiver Discharge Instructions Pt seen by [employer]/PA only: No Clinical Impression: Abdominal pain, acute Sepsis Qualifiers: Sepsis type: sepsis due to unspecified organism Sepsis acute organ dysfunction status: without acute organ dysfunction Qualified Code(s): A41.9 - Sepsis, unspecified organism Patient Disposition: Xfer As Inpt ([facility]) Condition: Fair Discharge Date/Time: 11/28/22 08:37
[2022-11-28] MEDS ORDERED: HYDROmorphone 0.5 MG/0.5 ML SYRINGE IV ONE (02:53)
[2022-11-28] MEDS ORDERED: 0.9 % SODIUM CHLORIDE 1,000 ML IV ONE (02:53)
[2022-11-28] MEDS ORDERED: ONDANSETRON 4 MG/2 ML VIAL IV ONE (02:53)
[2022-11-28] MEDS ORDERED: PANTOPRAZOLE 40 MG VIAL IV ONE (02:55)
[2022-11-28 03:27] LABS: POC Calcium, Ionized 1.15 (1.16-1.32); POC Creatinine 0.8 (0.6-1.2); POC Potassium 3.7 (3.3-5.1)
[2022-11-28 04:00] LABS: Basophils # (Auto) 0.06 K/mcL (0.00-0.30); Basophils % (Auto) 0.4 % (0.0-2.0); Eosinophils % (Auto) 0.6 % (0.0-7.0); Hematocrit 35.7 % (34.1-44.9); Hemoglobin 12.4 g/dL (11.2-15.7); Lymphocytes # (Auto) 2.25 K/mcL (1.50-4.80); Lymphocytes % (Auto) 13.2 % (15.5-49.0); Mean Cell Volume 89.9 fL (80.0-100.0); Mean Corpuscular HGB Conc 34.7 g/dL (31.0-36.0); Mean Platelet Volume 10.4 fL (8.8-12.5); Monocytes # (Auto) 1.65 K/mcL (0.10-0.90); Monocytes % (Auto) 9.7 % (1.0-12.0); Neutrophils % (Auto) 75.7 % (38.0-78.0); Platelet Count 328 K/mcL (140-440); RBC 3.97 M/mcL (3.59-5.38)
[2022-11-28 04:12] LABS: ALT/SGPT 11 U/L (<40); AST/SGOT 19 U/L (<32); Albumin 3.8 gm/dL (3.2-5.2); Alkaline Phosphatase 103 U/L (39-117); Bilirubin,Direct < 0.2 mg/dL (0-0.3); Bilirubin,Total 0.4 mg/dL (0.1-1.0); Globulin 3.1 gm/dL (2.2-3.7)
[2022-11-28] MEDS ORDERED: VANCOMYCIN 1,500 MG in 0.9 % SODIUM CHLORIDE 500 ML IV ONE (04:30)
[2022-11-28] MEDS ORDERED: PIPERACILLIN SODIUM/TAZOBACTAM 3.375 GM in DEXTROSE 5% IN WATER 50 ML IV ONE (04:30)
[2022-11-28] MEDS ORDERED: 0.9 % SODIUM CHLORIDE 1,710 ML IV ONE (04:48)
[2022-11-28 05:14] LABS: Appearance,Urine CLOUDY (Clear); Bacteria,Urine FEW /hpf (0); Bilirubin,Urine NEGATIVE (Negative); Color,Urine LT. YELLOW; Culture Indicated,Urine yes; Glucose,Urine (UA) NEGATIVE (Negative); Ketones,Urine NEGATIVE (Negative); Leukocyte Esterase,Urine SMALL /uL (Negative); Mucus,Urine FEW /hpf; Nitrate,Urine Positive (Negative); Protein,Urine NEGATIVE (Negative); Specific Gravity,Urine 1.015 (1.000-1.035); Urine Blood SMALL ery/mcL (Negative); Urine RBC 9 /hpf (0-3); Urine Squamous Epithelial Cell < 1 /hpf (0-4); Urine WBC 83 /hpf (0-4); Urobilinogen,Urine Normal
[2022-11-28 06:19] LABS: Partial Thromboplastin Time 35.1 sec (20.0-37.0); Prothrombin Time 13.6 sec (11.9-14.5)
[2022-11-28] MEDS ORDERED: 0.9 % SODIUM CHLORIDE 1,000 ML IV SCH (07:00)
--- NOTE | 2022-11-28 08:16 | Cat Scan Report ---
CLINICAL INFORMATION: Left upper quadrant pain COMPARISON: None. TECHNIQUE: Following enteric contrast, 80 cc of Isovue-[id number] were injected intravenously, and 60 seconds later, 0.625 mm helical slices were obtained from the mid heart through the subtrochanteric regions. Following reconstruction, 2.5 mm sagittal, coronal and axial reformatted images were processed and reviewed at bone, lung and soft tissue windows. Five minutes later, 0.625 mm helical slices were obtained from the mid heart through the kidneys and viewed at soft tissue windows.The exam was performed using radiation dose optimization techniques including, but not limited to, automated exposure control, adjustment of the mA and/or kV according to patient size and use of iterative reconstruction technique. FINDINGS: The lung bases are clear. No effusions. The visualized heart is grossly normal. Abdominal images show the gallbladder and bile ducts, liver, adrenal glands, spleen, pancreas and aorta, including aortic branches, are normal in size, configuration and attenuation without focal lesion. There is no free air, free fluid or adenopathy. The right kidney is normal in size, configuration and attenuation spanning 10 cm. The left kidney is mildly enlarged-11.2 cm. In addition, there is inhomogeneous attenuation throughout the renal parenchyma with scattered low-attenuation foci compatible with pyelonephritis (lobar nephronia). Specific regions include 18 minimally low-attenuation focus superior pole, AP millimeter low-attenuation focus in the mid region a 10 mm low-attenuation focus in the inferior pole. There is also mild left perinephric inflammation. The upper collecting systems and ureters are normal. Pelvic images show normal urinary bladder. Uterus is anteflexed and normal in size: 7.7 x 3.7 cm. There is a vague 3 cm inhomogeneous soft tissue mass projecting from the left cervical region which is not well characterized on CT. It will require pelvic ultrasound. Moderate congestion of the bilateral periuterine and paraovarian venous plexus appreciated. Both ovaries are normal colon the right is 2.5 cm and the left is 2.8 cm. The stomach, small bowel, medial pericecal appendix and large bowel are all grossly normal. Bone windows show no osseous abnormality. IMPRESSION: 1. Left pyelonephritis with scattered regions of lobar nephronia. 2. Vague 3 cm mass in the left cervical region. Suggest pelvic ultrasound for more specific evaluation 3. Moderate congestion of the periuterine and paraovarian venous plexus. Patient may be at risk for pelvic congestion syndrome if she has chronic or intermittent pelvic pain. Interpreted and Authenticated by: Jeff Warren 11/28/22
--- NOTE | 2022-11-28 08:35 | Internal Med History&Physical ---
HPI History of Present Illness Patient information: Note initiated : 11/28/22 at 8:33 am Service Date, if different from initiated Date: [] Patient: Robyn Blanco a 42 y/o F admitted on for left upper abd. pain. Chief Complaint: [abdominal pain] Chief complaint: abdominal pain History of present illness: Ms. Blanco is a 42 year old F history of prediabetes, cigarette smoker, alcohol use, marijuana/cocaine use, presenting with 1 day history acute onset abdominal pain. No prior similar episode. No associated trauma or injury. Last night she had acute onset left lower quadrant abdominal pain. Pain is being described as sharp, constant, nonradiating, 10 out of 10 in intensity. No alleviating or exacerbating factors. It is associated with nausea as well as subjective fever. She denies dysuria, or change in urinary frequency or urgency. Labs significant for leukocytosis WBC 17.0. Lactic acid 0.4. UA suggesting the presence of urinary tract infections. CT of the abdomen pelvis showing left pyelonephritis. It also shows a vague 3 cm mass in the left cervical region. Admission request is called for pyelonephritis. Constitutional Constitutional: Present fever(s) and weakness; Absent chills, excessive sweating or fatigue EENT Eyes: Absent blurry vision, change in vision, loss of vision or other visual disturbances Ears: Absent decreased hearing or tinnitus Nose, mouth and throat: Absent abnormal hearing, dry mouth, headache(s), nasal congestion or sore throat Cardiovascular Cardiovascular: Absent chest pain, chest pain at rest, edema, irregular heart rhythm or palpatations Respiratory Respiratory: Absent cough, dyspnea or wheezing Gastrointestinal Gastrointestinal: Present abdominal pain and nausea; Absent constipation, diarrhea or vomiting Musculoskeletal Musculoskeletal: Absent back pain, deformity, limited range of motion, muscle cramps, muscle weakness or numbness Integumentary Integumentary: Absent lesions, rash or wounds Neurological Neurological: Absent focal weakness, headache(s) or numbness Psychiatric Psychiatric: Absent anxiety, depression or hallucinations PFSH PFSH All Active Problems (Updated 11/28/22 @ 08:40 by Domenic Mesa MD) Drug abuse (Acute) Prediabetes (Acute) Pyelonephritis (Acute) Strep sore throat (Acute) Drug overdose (Acute) Headache (Acute) Tachycardia (Acute) Sepsis (Acute) Urinary tract infection (Acute) Abdominal pain, acute (Acute) Social History smoking status: Current every day smoker MEDS/ALLERGIES Home Medications and Allergies Home Medications Medication Instructions Recorded Confirmed Type naloxone 4 mg/actuation nasal 4 mg intranasal Q2M PRN opioid 09/15/22 09/19/22 Rx spray (Narcan) overdose #2 ea Allergies Allergy/AdvReac Type Severity Reaction Status Date / Time No Known Drug Allergies Allergy Verified 11/28/22 02:33 EXAM Constitutional Vitals: Temp Pulse Resp BP Pulse Ox O2 Del Method 36.9 C 85 18 119/78 98 11/28/22 02:29 11/28/22 08:30 11/28/22 02:29 11/28/22 08:30 11/28/22 08:30 11/28/22 02:29 General appearance: cooperative and mild distress Head Head exam: Present atraumatic and normocephalic Eye Eye exam: Present EOMI and PERRL ENT ENT exam: Present mucous membranes moist, normal exam and normal external ear exam Neck Neck exam: Present normal inspection; Absent lymphadenopathy, tenderness or thyromegaly Respiratory Respiratory exam: Absent accessory muscle use, respiratory distress or wheezes Cardiovascular Cardiovascular exam: Present normal rate and rhythm; Absent JVD GI/Abdominal GI/Abdominal exam: Present normal bowel sounds, soft and tenderness; Absent organomegaly Extremities Exam Extremities exam: Present full ROM, normal capillary refill and normal i nspection; Absent tenderness Back Exam Back exam: Present CVA tenderness (L) Neurological Exam Neurological exam: Present alert, CN II-XII intact and oriented X3; Absent motor sensory deficit Psychiatric Psychiatric exam: Present normal affect and normal mood; Absent anxious or depressed Skin Skin exam: Present dry and intact DATA Data Completed and Pending Labs: Labs from last 24 hours 11/28/22 11/28/22 11/28/22 04:40 04:40 04:19 WBC RBC Hgb Hct POC Hct MCV MCH MCHC RDW Plt Count MPV Immature Gran % (Auto) Neut % (Auto) Lymph % (Auto) [place] % (Auto) Eos % (Auto) Baso % (Auto) Lymph # (Auto) [place] # (Auto) Eos # (Auto) Baso # (Auto) Immature Gran # Absolute Neutrophils PT 13.6 INR 1.0 APTT 35.1 VBG Lactic Acid 0.4 L POC Sodium POC Potassium POC Chloride POC Total CO2 POC BUN POC Creatinine POC Glucose POC WB Ioniz Calcium Total Bilirubin Direct Bilirubin AST ALT Alkaline Phosphatase Total Protein Albumin Globulin Lipase 31 Urine Color Lt. yellow Urine Appearance Cloudy A Urine pH 7.0 Ur Specific [place] 1.015 Urine Protein Negative Urine Glucose (UA) Negative Urine Ketones Negative Urine Occult Blood Small A Urine Nitrate Positive A Urine Bilirubin Negative Urine Urobilinogen Normal Ur Leukocyte Esterase Small A Urine RBC 9 H Urine WBC 83 H Ur Squamous Epith Cells < 1 Urine Bacteria Few A Urine Mucus Few A Ur Culture Indicated? yes 11/28/22 11/28/22 11/28/22 03:24 02:53 02:53 WBC 17.0 H RBC 3.97 Hgb 12.4 Hct 35.7 POC Hct 34.0 L MCV 89.9 MCH 31.2 MCHC 34.7 RDW 12.0 Plt Count 328 MPV 10.4 Immature Gran % (Auto) 0.4 Neut % (Auto) 75.7 Lymph % (Auto) 13.2 L [place] % (Auto) 9.7 Eos % (Auto) 0.6 Baso % (Auto) 0.4 Lymph # (Auto) 2.25 [place] # (Auto) 1.65 H Eos # (Auto) 0.10 Baso # (Auto) 0.06 Immature Gran # 0.06 H Absolute Neutrophils 12.90 H PT INR APTT VBG Lactic Acid POC Sodium 136 POC Potassium 3.7 POC Chloride 101 POC Total CO2 27.0 POC BUN 15 POC Creatinine 0.8 POC Glucose 113 H POC WB Ioniz Calcium 1.15 L Total Bilirubin 0.4 Direct Bilirubin < 0.2 AST 19 ALT 11 Alkaline Phosphatase 103 Total Protein 6.9 Albumin 3.8 Globulin 3.1 Lipase Urine Color Urine Appearance Urine pH Ur Specific [place] Urine Protein Urine Glucose (UA) Urine Ketones Urine Occult Blood Urine Nitrate Urine Bilirubin Urine Urobilinogen Ur Leukocyte Esterase Urine RBC Urine WBC Ur Squamous Epith Cells Urine Bacteria Urine Mucus Ur Culture Indicated? A/P Assessment and plan (1) Pyelonephritis: Status: Acute (2) Prediabetes: Status: Acute (3) Drug abuse: Status: Acute Narrative A/P Narrative: Assessment and Plans: 1. Left pyelonephritis: Inpatient med surg s/p IV fluid bolus in the ED, followed by NS@125cc/hr Rocephin Serial lactic acid Procalcitonin Blood culture Urine culture cbc w/ auto diff in the morning to trend WBC 2. Pre-diabetes: HgA1c POC glucose 113 Regular diet 3. Cigarette/alcohol/marijuana/cocaine use: Urine drug screening GI ppx: not currently indicated DVT ppx: Lovenox Code status: Full Prognosis: guarded Disposition: inpatient med surg Time Spent With Patient Time: Total time spent is greater than 50% in coordination of care (as documented) at patient's floor/unit and/or counseling patient: Initial: Total time with patient: 55 - 74 minutes
[2022-11-28] MEDS ORDERED: ONDANSETRON 4 MG/2 ML VIAL IV PRN (08:44)
[2022-11-28] MEDS ORDERED: oxyCODONE HCL 5 MG TABLET PO PRN (08:44)
[2022-11-28] MEDS ORDERED: IPRATROPIUM/ALBUTEROL 3 ML AMPUL.NEB NEB PRN (08:44)
[2022-11-28] MEDS: ENOXAPARIN 40 MG/0.4 ML SYRINGE SQ SCH ×2 (09:37→09:38)
[2022-11-28] MEDS: cefTRIAXone 2 GM in DEXTROSE 5% IN WATER 50 ML IV SCH (09:37)
[2022-11-28] MEDS: DOCUSATE SODIUM 100 MG CAPSULE PO SCH ×2 (09:37→21:36)
[2022-11-28] MEDS: ACETAMINOPHEN 325 MG TABLET PO PRN ×2 (10:12→18:02)
[2022-11-28 10:53] LABS: Amphetamine Screen,Urine Suspect positive; Barbiturate Screen,Urine None detected; Benzodiazepines Screen,Urine None detected; Cannabinoid Screen,Urine Suspect Positive; Cocaine Screen,Urine None detected; Opiate Screen,Urine None detected; Oxycodone, Urine Screen None detected; Phencyclidine Screen,Urine None detected
[2022-11-28] MEDS ORDERED: chlordiazePOXIDE 25 MG CAPSULE PO PRN (14:09)
--- NOTE | 2022-11-28 14:10 | Internal Med Progress Note ---
SUBJECTIVE Subjective Patient information: Note initiated : 11/28/22 at 2:03 pm Service Date, if different from initiated Date: [] Patient: Robyn Blanco a 42 y/o F admitted on 11/28/22 for left upper abd. pain. Chief Complaint: [] Interval history: History of present illness: Ms. Blanco is a 42 year old F history of prediabetes, cigarette smoker, alcohol use, marijuana/cocaine use, presenting with 1 day history acute onset abdominal pain. No prior similar episode. No associated trauma or injury. Last night she had acute onset left lower quadrant abdominal pain. Pain is being described as sharp, constant, nonradiating, 10 out of 10 in intensity. No alleviating or exacerbating factors. It is associated with nausea as well as subjective fever. She denies dysuria, or change in urinary frequency or urgency. Labs significant for leukocytosis WBC 17.0. Lactic acid 0.4. UA suggesting the presence of urinary tract infections. CT of the abdomen pelvis showing left pyelonephritis. It also shows a vague 3 cm mass in the left cervical region. Admission request is called for pyelonephritis. 11/29 Constitutional Vitals: Vital Signs Temp Pulse Resp BP Pulse Ox O2 Del Method 100.4 F H 98 H 16 120/72 98 11/28/22 11:14 11/28/22 11:14 11/28/22 11:14 11/28/22 11:14 11/28/22 11:14 11/28/22 11:14 Period Temp Pulse Resp BP Sys/Triana Pulse Ox O2 Del Method O2 Flow Rate Last 24 Hr 98.5 F-100.4 F 81-106 16-18 107-145/65-101 95-100 Room Air- Room Air Intake and Output 11/28/22 11/28/22 11/28/22 03:59 11:59 19:59 Intake Total 4030 Output Total 700 Balance 3330 Weight 63.503 kg 63.503 kg Patient Weight 11/29/22 03:59 Weight 63.503 kg Intake & Output: Intake & Output 11/28/22 11/28/22 11/28/22 03:59 11:59 19:59 Intake Total 4030 Output Total 700 Balance 3330 Weight 63.503 kg 63.503 kg Intake: IV 3310 Sodium Chloride 0.9% 1,710 ml @ 2710 3420 mls/hr IV .Q30M [facility] Rx#: [id number] Zosyn 3.375 gm In Dextrose 5% 50 in Water 50 ml @ 100 mls/hr IV ONCE ONE Rx#:[id number] Vancomycin 1,500 mg In Sodium 500 Chloride 0.9% 500 ml @ 333.3 mls/hr IV ONCE ONE Rx#: [id number] Rocephin 2 gm In Dextrose 5% in 50 Water 50 ml @ 100 mls/hr IV Q24H [facility] Rx#:[id number] Oral 720 Output: Void Amount 700 Other: Meal Breakfast Percent of Meal Consumed 100% Feeding Ability Independent Urine Appearance Cloudy Urine Color Yellow Urine Odor Normal Exam: General: Alert, Awake, No acute Distress Eyes/N/T: EOMI, Head/Neck: neck supple, CV: RRR, No murmurs, Pulm: Clear b/l, no wheezing/rhonchi/rales Abd: soft, nontender, +BS x4 Ext: no clubbing/cyanosis/edema Neuro: Alert, no focal deficits, moves all extremities, Skin: warm/dry OBJ DATA Labs CBC & Chem 7: 11/28/22 02:53 Labs: Abnormal Lab Results 11/28/22 11/28/22 11/28/22 04:40 04:30 04:30 WBC POC Hct Lymph % (Auto) Early # (Auto) Immature Gran # Absolute Neutrophils VBG Lactic Acid 0.4 L POC Glucose POC WB Ioniz Calcium Procalcitonin 0.41 H Urine Appearance Urine Occult Blood Urine Nitrate Ur Leukocyte Esterase Urine RBC Urine WBC Urine Bacteria Urine Mucus Ur Amphetamines Screen Suspect positive A U Marijuana (THC) Screen Suspect positive A 11/28/22 11/28/22 11/28/22 04:19 03:24 02:53 WBC 17.0 H POC Hct 34.0 L Lymph % (Auto) 13.2 L Early # (Auto) 1.65 H Immature Gran # 0.06 H Absolute Neutrophils 12.90 H VBG Lactic Acid POC Glucose 113 H POC WB Ioniz Calcium 1.15 L Procalcitonin Urine Appearance Cloudy A Urine Occult Blood Small A Urine Nitrate Positive A Ur Leukocyte Esterase Small A Urine RBC 9 H Urine WBC 83 H Urine Bacteria Few A Urine Mucus Few A Ur Amphetamines Screen U Marijuana (THC) Screen Meds: Medications Acetaminophen (Acetaminophen 325 Mg Tablet) 650 mg PO Q6HP PRN; Protocol PRN Reason: Per Pain Protocol/Fever > 101 Last Admin: 11/28/22 10:12 Dose: 650 mg Albuterol/Ipratropium (Ipratropium/Albuterol 3 Ml Ampul.Neb) 3 ml NEB Q4HRT PRN PRN Reason: Wheezing Docusate Sodium (Docusate Sodium 100 Mg Capsule) 100 mg PO BID [facility] Last Admin: 11/28/22 09:37 Dose: 100 mg Enoxaparin Sodium (Enoxaparin 40 Mg/0.4 Ml Syringe) 40 mg SQ DAILY [facility] Last Admin: 11/28/22 09:38 Dose: Not Given Sodium Chloride (Sodium Chloride 0.9%) 1,000 mls @ 125 mls/hr IV .Q8H [facility] Last Admin: 11/28/22 09:12 Dose: 125 mls/hr Ceftriaxone Sodium 2 gm/ (Dextrose) 50 mls @ 100 mls/hr IV Q24H [facility]; Protocol Last Infusion: 11/28/22 10:09 Dose: Infused Morphine Sulfate (Morphine 4 Mg/Ml Vial) 4 mg IV Q4HP PRN; Protocol PRN Reason: Per Pain Protocol Ondansetron HCl (Ondansetron 4 Mg/2 Ml Vial) 4 mg IV Q6HP PRN PRN Reason: Nausea And Vomiting Oxycodone HCl (Oxycodone Hcl 5 Mg Tablet) 5 mg PO Q4HP PRN; Protocol PRN Reason: Per Pain Protocol Senna (Sennosides 1 Tablet) 2 tab PO HS [facility] Sodium Chloride (0.9 % Sodium Chloride 10 Ml Syringe) 10 ml IV Q8 [facility] A/P Narrative A/P Narrative: A: *Pyelonephritis, left: *Sepsis (leukocytosis/fever/tachycardia): *Prediabetes: *Tobacco abuse *Alcohol abuse: *Cocaine abuse and marijuana use: -UDS (+) for Amphetamine P: -IV rocephin, pending BC/UC -f/u lactate/pct -IVF's -f/u and trend cbc/cmp -a1c -ssi -ciwa, vitamins/minerals -Smoking cessation counseling > 3 minutes -Substance abuse cessation counseling -ppx: lovenox Time Spent With Patient Time: Total time spent is greater than 50% in coordination of care (as documented) at patient's floor/unit and/or counseling patient: QUALITY VTE Deep Vein Thrombosis/Pulmonary Embolism Present on Admission: No
[2022-11-28] MEDS: 0.9 % SODIUM CHLORIDE 10 ML SYRINGE IV SCH ×2 (14:36→21:37)
[2022-11-28] MEDS: morphine 4 MG/ML VIAL IV PRN ×2 (15:33→15:34)
[2022-11-28 16:38] LABS: Hemoglobin A1C 5.2 % Hgb (4.0-6.0)
[2022-11-28] MEDS ORDERED: SENNOSIDES 1 TABLET PO SCH (21:00)
[2022-11-29] MEDS: ACETAMINOPHEN 325 MG TABLET PO PRN (04:02)
[2022-11-29] MEDS: 0.9 % SODIUM CHLORIDE 10 ML SYRINGE IV SCH (05:53)
[2022-11-29 06:34] LABS: Basophils # (Auto) 0.03 K/mcL (0.00-0.30); Basophils % (Auto) 0.2 % (0.0-2.0); Eosinophils # (Auto) 0.12 K/mcL (0.00-0.70); Eosinophils % (Auto) 0.8 % (0.0-7.0); Hematocrit 35.9 % (34.1-44.9); Lymphocytes # (Auto) 2.01 K/mcL (1.50-4.80); Lymphocytes % (Auto) 13.4 % (15.5-49.0); Mean Cell Volume 93.2 fL (80.0-100.0); Mean Corpuscular HGB Conc 33.4 g/dL (31.0-36.0); Monocytes % (Auto) 9.3 % (1.0-12.0); Platelet Count 319 K/mcL (140-440); RBC 3.85 M/mcL (3.59-5.38); Red Cell Distribution Width 11.9 % (11.5-14.5)
[2022-11-29 06:58] LABS: ALT/SGPT 16 U/L (<40); AST/SGOT 19 U/L (<32); Albumin 3.3 gm/dL (3.2-5.2); Albumin/Globulin Ratio 1.1 (1.0-2.3); Alkaline Phosphatase 101 U/L (39-117); Bilirubin,Direct < 0.2 mg/dL (0-0.3); Bilirubin,Total 0.4 mg/dL (0.1-1.0); Blood Urea Nitrogen 7 mg/dL (6-20); Calcium 8.4 mg/dL (8.6-10.4); Carbon Dioxide 27 mmol/L (22-30); Chloride 100 mmol/L (96-108); Globulin 3.1 gm/dL (2.2-3.7); Glomerular Filtration Rate 108; Glucose 95 mg/dL (70-105); Lactate Dehydrogenase 162 U/L (135-225); Phosphorous 2.4 mg/dL (2.5-4.5); Triglycerides 49 mg/dL (<150); Uric Acid 3.1 mg/dL (2.5-8.0)
[2022-11-29] MEDS: cefTRIAXone 2 GM in DEXTROSE 5% IN WATER 50 ML IV SCH (08:10)
[2022-11-29] MEDS: DOCUSATE SODIUM 100 MG CAPSULE PO SCH (08:10)
[2022-11-29] MEDS: ENOXAPARIN 40 MG/0.4 ML SYRINGE SQ SCH (08:11)
[2022-11-29] MEDS ORDERED: THIAMINE 100 MG TABLET PO SCH (09:00)
[2022-11-29] MEDS ORDERED: FOLIC ACID 1 MG TABLET PO SCH (09:00)
[2022-11-29] MEDS ORDERED: MULTIVIT,THER IRON,CA,FA & MIN 1 TABLET PO SCH (09:00)
--- NOTE | 2022-11-29 09:16 | Internal Med Progress Note ---
SUBJECTIVE Subjective Patient information: Note initiated : 11/29/22 at 9:13 am Service Date, if different from initiated Date: [] Patient: Robyn Blanco a 42 y/o F admitted on 11/28/22 for left upper abd. pain. Chief Complaint: [] Interval history: History of present illness: Ms. Blanco is a 42 year old F history of prediabetes, cigarette smoker, alcohol use, marijuana/cocaine use, presenting with 1 day history acute onset abdominal pain. No prior similar episode. No associated trauma or injury. Last night she had acute onset left lower quadrant abdominal pain. Pain is being described as sharp, constant, nonradiating, 10 out of 10 in intensity. No alleviating or exacerbating factors. It is associated with nausea as well as subjective fever. She denies dysuria, or change in urinary frequency or urgency. Labs significant for leukocytosis WBC 17.0. Lactic acid 0.4. UA suggesting the presence of urinary tract infections. CT of the abdomen pelvis showing left pyelonephritis. It also shows a vague 3 cm mass in the left cervical region. Admission request is called for pyelonephritis. 11/29 Patient complains of headache. Left flank pain which is improving. CT imaging with 3 cm mass left cervical region suggest ultrasound pelvic. Leukocytosis quite elevated but mildly improved. Calcitonin improving. Review of Systems: denies headache/fever/chills/nausea/vomiting/chest pain/cough/dyspnea/diarrhea. Otherwise see above. Constitutional Vitals: Vital Signs Temp Pulse Resp BP Pulse Ox O2 Del Method 98.8 F 77 18 112/76 100 11/29/22 08:00 11/29/22 08:00 11/29/22 08:00 11/29/22 08:00 11/29/22 08:00 11/29/22 08:00 Period Temp Pulse Resp BP Sys/Triana Pulse Ox O2 Del Method O2 Flow Rate Last 24 Hr 98.1 F-100.9 F 77-100 16-20 104-136/64-84 97-100 Room Air-Room Air Intake and Output 11/28/22 11/29/22 11/29/22 19:59 03:59 11:59 Intake Total 2420 1010 50 Output Total 1250 1050 Balance 1170 -40 50 Weight 66.224 kg Intake & Output: Intake & Output 0111/29/22 11/29/22 19:59 03:59 11:59 Intake Total 2420 1010 50 Output Total 1250 1050 Balance 1170 -40 50 Weight 66.224 kg Intake: IV 1000 50 Sodium Chloride 0.9% 1,000 ml @ 1000 125 mls/hr IV .Q8H [facility] Rx#: [id number] Rocephin 2 gm In Dextrose 5% in 50 Water 50 ml @ 100 mls/hr IV Q24H [facility] Rx#:[id number] Oral 1420 1010 Output: Void Amount 1250 1050 Other: Meal Lunch Percent of Meal Consumed 100% Feeding Ability Independent Urine Appearance Clear Urine Color Yellow Yellow Urine Odor Normal Exam: General: Alert, Awake, No acute Distress Eyes/N/T: EOMI, Head/Neck: neck supple, CV: RRR, No murmurs, Pulm: Clear b/l, no wheezing/rhonchi/rales Abd: soft, nontender, +BS x4, tender left CVA Ext: no clubbing/cyanosis/edema Neuro: Alert, no focal deficits, moves all extremities, Skin: warm/dry OBJ DATA Labs CBC & Chem 7: 11/29/22 05:18 11/29/22 05:17 Labs: Abnormal Lab Results 11/29/22 11/29/22 11/29/22 05:18 05:17 05:17 WBC 15.0 H POC Hct Lymph % (Auto) 13.4 L [place] # (Auto) 1.40 H Immature Gran # Absolute Neutrophils 11.39 H VBG Lactic Acid Anion Gap 7.0 L POC Glucose Calcium 8.4 L POC WB Ioniz Calcium Phosphorus 2.4 L Procalcitonin 0.21 H Urine Appearance Urine Occult Blood Urine Nitrate Ur Leukocyte Esterase Urine RBC Urine WBC Urine Bacteria Urine Mucus Ur Amphetamines Screen U Marijuana (THC) Screen 11/28/22 11/28/22 11/28/22 04:40 04:30 04:30 WBC POC Hct Lymph % (Auto) [place] # (Auto) Immature Gran # Absolute Neutrophils VBG Lactic Acid 0.4 L Anion Gap POC Glucose Calcium POC WB Ioniz Calcium Phosphorus Procalcitonin 0.41 H Urine Appearance Urine Occult Blood Urine Nitrate Ur Leukocyte Esterase Urine RBC Urine WBC Urine Bacteria Urine Mucus Ur Amphetamines Screen Suspect positive A U Marijuana (THC) Screen Suspect positive A 11/28/22 11/28/22 11/28/22 04:19 03:24 02:53 WBC 17.0 H POC Hct 34.0 L Lymph % (Auto) 13.2 L [place] # (Auto) 1.65 H Immature Gran # 0.06 H Absolute Neutrophils 12.90 H VBG Lactic Acid Anion Gap POC Glucose 113 H Calcium POC WB Ioniz Calcium 1.15 L Phosphorus Procalcitonin Urine Appearance Cloudy A Urine Occult Blood Small A Urine Nitrate Positive A Ur Leukocyte Esterase Small A Urine RBC 9 H Urine WBC 83 H Urine Bacteria Few A Urine Mucus Few A Ur Amphetamines Screen U Marijuana (THC) Screen Meds: Medications Acetaminophen (Acetaminophen 325 Mg Tablet) 650 mg PO Q6HP PRN; Protocol PRN Reason: Per Pain Protocol/Fever > 101 Last Admin: 11/29/22 04:02 Dose: 650 mg Albuterol/Ipratropium (Ipratropium/Albuterol 3 Ml Ampul.Neb) 3 ml NEB Q4HRT PRN PRN Reason: Wheezing Chlordiazepoxide HCl (Chlordiazepoxide 25 Mg Capsule) 25 mg PO UD PRN; Protocol PRN Reason: Alcohol Withdrawal/Assess CIWA Docusate Sodium (Docusate Sodium 100 Mg Capsule) 100 mg PO BID [facility] Last Admin: 11/29/22 08:10 Dose: 100 mg Enoxaparin Sodium (Enoxaparin 40 Mg/0.4 Ml Syringe) 40 mg SQ DAILY [facility] Last Admin: 11/29/22 08:11 Dose: Not Given Folic Acid (Folic Acid 1 Mg Tablet) 1 mg PO DAILY [facility] Last Admin: 11/29/22 08:10 Dose: 1 mg Ceftriaxone Sodium 2 gm/ (Dextrose) 50 mls @ 100 mls/hr IV Q24H [facility]; Protocol Last Infusion: 11/29/22 08:47 Dose: Infused Iron Carb/Multivit/Reynolds/Folic Acid (Multivit,Ther Iron,Ca,Fa & Min 1 Tablet) 1 tab PO DAILY [facility] Last Admin: 11/29/22 08:10 Dose: 1 tab Morphine Sulfate (Morphine 4 Mg/Ml Vial) 4 mg IV Q4HP PRN; Protocol PRN Reason: Per Pain Protocol Last Admin: 11/28/22 15:34 Dose: 1 mg Ondansetron HCl (Ondansetron 4 Mg/2 Ml Vial) 4 mg IV Q6HP PRN PRN Reason: Nausea And Vomiting Oxycodone HCl (Oxycodone Hcl 5 Mg Tablet) 5 mg PO Q4HP PRN; Protocol PRN Reason: Per Pain Protocol Last Admin: 11/28/22 14:35 Dose: 5 mg Senna (Sennosides 1 Tablet) 2 tab PO HS [facility] Last Admin: 11/28/22 21:36 Dose: 2 tab Sodium Chloride (0.9 % Sodium Chloride 10 Ml Syringe) 10 ml IV Q8 [facility] Last Admin: 11/29/22 05:53 Dose: 10 ml Thiamine HCl (Thiamine 100 Mg Tablet) 100 mg PO QDAY [facility] Last Admin: 11/29/22 08:10 Dose: 100 mg A/P Narrative A/P Narrative: A: *Pyelonephritis (), left: *Sepsis (leukocytosis/fever/tachycardia): -pct improving *Prediabetes: *Tobacco abuse: *Alcohol abuse: *Cocaine abuse and marijuana use: -UDS (+) for Amphetamine *Incidental left cervical mass noted on imaging 3 cm: P: -IV rocephin, pending BC/UC -f/u lactate/pct -IVF's d/c -f/u and trend cbc/cmp -ssi -ciwa, vitamins/minerals -Smoking cessation counseling -Substance abuse cessation counseling -Pelvic ultrasound -inicidental vague 3cm mass left cervical region, f/u outpt with pelvic us -ppx: lovenox Time Spent With Patient Time: Total time spent is greater than 50% in coordination of care (as documented) at patient's floor/unit and/or counseling patient: Subsequent: Total time with patient: 50 - 65 Minutes QUALITY VTE Deep Vein Thrombosis/Pulmonary Embolism Present on Admission: No
[2022-11-29] MEDS ORDERED: LORazepam 2 MG/ML VIAL IV PRN (10:07)
--- NOTE | 2022-11-29 13:22 | Discharge Summary ---
Discharge Provider Provider IMPORTANT FOLLOW-UP INFORMATION FOR PCP: Patient information: Note initiated : 11/29/22 at 1:20 pm Service Date, if different from initiated Date: [] Patient: Robyn Blanco a 42 y/o F admitted on 11/28/22 for left upper abd. pain. Chief Complaint: [] Date of admission: 11/28/22 08:37 Discharge date: 11/29/22 Primary care physician: PCP No Consults: 11/28/22 Consult to Physician [CONS] Stat Comment: Consulting Provider: Domenic Mesa Reason For Exam: Physician to Consult COURSE Hospital Course Hospital course: History of present illness: Ms. Blanco is a 42 year old F history of prediabetes, cigarette smoker, alcohol use, marijuana/cocaine use, presenting with 1 day history acute onset abdominal pain. No prior similar episode. No associated trauma or injury. Last night she had acute onset left lower quadrant abdominal pain. Pain is being described as sharp, constant, nonradiating, 10 out of 10 in intensity. No alleviating or exacerbating factors. It is associated with nausea as well as subjective fever. She denies dysuria, or change in urinary frequency or urgency. Labs significant for leukocytosis WBC 17.0. Lactic acid 0.4. UA suggesting the presence of urinary tract infections. CT of the abdomen pelvis showing left pyelonephritis. It also shows a vague 3 cm mass in the left cervical region. Admission request is called for pyelonephritis. 11/29 Patient complains of headache. Left flank pain which is improving. CT imaging with 3 cm mass left cervical region suggest ultrasound pelvic. Leukocytosis quite elevated but mildly improved. proCalcitonin improving. pending pelvic us. Patient left AMA A: *Pyelonephritis (), left: *Sepsis (leukocytosis/fever/tachycardia): *Prediabetes: *Tobacco abuse: *Alcohol abuse: *Cocaine abuse and marijuana use: -UDS (+) for Amphetamine *Incidental left cervical mass noted on imaging 3 cm: P: -abx -Patient left AMA before Pelvic ultrasound could be done, follow-up with PCP outpatient Discharge diagnosis: Pyelonephritis sepsis substance abuse cervical mass Secondary discharge diagnosis: Tobacco abuse alcohol abuse prediabetes Time Spent with Patient Time attestation: Total time spent providing and/or coordinating discharge services: Time spent: Less than 30 minutes EXAM Constitutional Vitals: Temp Pulse Resp BP Pulse Ox O2 Del Method 98.4 F 77 18 112/76 100 11/29/22 11:46 11/29/22 11:46 11/29/22 11:46 11/29/22 11:46 11/29/22 11:46 11/29/22 11:46 Discharge Data Data Completed and Pending Labs on day of discharge: Labs from last 24 hours 11/29/22 11/29/22 11/29/22 05:18 05:17 05:17 WBC 15.0 H RBC 3.85 Hgb 12.0 Hct 35.9 MCV 93.2 MCH 31.2 MCHC 33.4 RDW 11.9 Plt Count 319 MPV 10.0 Immature Gran % (Auto) 0.3 Neut % (Auto) 76.0 Lymph % (Auto) 13.4 L Ray % (Auto) 9.3 Eos % (Auto) 0.8 Baso % (Auto) 0.2 Lymph # (Auto) 2.01 Ray # (Auto) 1.40 H Eos # (Auto) 0.12 Baso # (Auto) 0.03 Immature Gran # 0.05 Absolute Neutrophils 11.39 H Sodium 134 Potassium 4.0 Chloride 100 Carbon Dioxide 27 Anion Gap 7.0 L BUN 7 Creatinine 0.7 GFR Calculation 108 Glucose 95 Hemoglobin A1c Estim Average Glucose Uric Acid 3.1 Calcium 8.4 L Phosphorus 2.4 L Magnesium 2.0 Total Bilirubin 0.4 Direct Bilirubin < 0.2 GGT 17 AST 19 ALT 16 Alkaline Phosphatase 101 Lactate Dehydrogenase 162 Total Protein 6.4 Albumin 3.3 Globulin 3.1 Albumin/Globulin Ratio 1.1 Triglycerides 49 Procalcitonin 0.21 H 11/28/22 02:53 WBC RBC Hgb Hct MCV MCH MCHC RDW Plt Count MPV Immature Gran % (Auto) Neut % (Auto) Lymph % (Auto) Ray % (Auto) Eos % (Auto) Baso % (Auto) Lymph # (Auto) Ray # (Auto) Eos # (Auto) Baso # (Auto) Immature Gran # Absolute Neutrophils Sodium Potassium Chloride Carbon Dioxide Anion Gap BUN Creatinine GFR Calculation Glucose Hemoglobin A1c 5.2 Estim Average Glucose 103 Uric Acid Calcium Phosphorus Magnesium Total Bilirubin Direct Bilirubin GGT AST ALT Alkaline Phosphatase Lactate Dehydrogenase Total Protein Albumin Globulin Albumin/Globulin Ratio Triglycerides Procalcitonin Preliminary micro results at discharge 11/28/22 04:19 Urine Culture - Preliminary Urine - Clean Void Mid-Stream Gram negative bacillus 11/28/22 04:50 Blood Culture - Preliminary Blood 11/28/22 04:40 Blood Culture - Preliminary Blood Discharge Plan Patient/Caregiver Discharge Instructions Prescriptions: New ciprofloxacin HCl [Cipro] 500 mg tablet 500 mg PO BID Qty: 10 0RF Follow Up Plan Follow up with: No,PCP [Primary Care Provider] - Patient Disposition: Left Against Medical Advice Prognosis: Fair QUALITY VTE Deep Vein Thrombosis/Pulmonary Embolism Present on Admission: No
[2022-12-10 10:47] LABS: Cannabinoid Confirmation Positive
== END 2022-11-29 11:40 | disposition left against medical advice (07) | DRG 689 ==
LOC: ED 02:28 → MEDSUR 08:37
PROVIDERS: ADMIT Internal Medicine; ATTEND Internal Medicine